=== PATIENT | female | born 1995 | race Caucasian/White ===

== ENCOUNTER 2023-07-18 10:26 | Emergency (ER) | payer BC, OTHER ==
[2023-07-18 10:42] VITALS: BP 143/70; O2SAT 98
[2023-07-18] MEDS ORDERED: ONDANSETRON ODT 4 MG TABLET TL STA (12:24)
--- NOTE | 2023-07-18 12:26 | ED Physician Documentation ---
PD HPI HEAD INJURY - Stated complaint Stated Complaint: DIZZY/NAUSEA/VOMITING - Chief complaint Chief Complaint: Trauma Hd/Nk - History obtained from History obtained from: Patient - Additional information Additional information: Yesterday around 5 PM she was picking up one of her child's toys and bent over and hit her forehead into the edge of the wall. She saw stars but did not blackout. Since then she has had a moderate headache with 1 episode of vomiting yesterday and one episode today. Everything worsened today and the fluorescent lights at work. PD PAST MEDICAL HISTORY - Past Medical History Past Medical History: No - Past Surgical History Past Surgical History: Yes Ortho: Shoulder arthroplasty /[employer]: section - Present Medications Home Medications: Ambulatory Orders Medication Instructions Recorded Confirmed Ondansetron Odt [Zofran] 4 mg TL Q6H PRN #10 tablet 07/18/23 - Allergies Allergies/Adverse Reactions: Allergies Allergy/AdvReac Type Severity Reaction Status Date / Time avocado Allergy Hives Verified 07/18/23 10:39 - Social History Does the pt smoke?: No Smoking Status: Never smoker Does the pt drink ETOH?: Yes Does the pt have substance abuse?: No - Immunizations Immunizations are current?: Yes - POLST Patient has POLST: No PD ED PE NORMAL - Vitals Vital signs reviewed: Yes - General General: Alert and oriented X 3, No acute distress - HEENT HEENT: PERRL, EOMI - Neck Neck: Supple, no meningeal sign, No bony TTP - Neuro Neuro: Alert and oriented X 3, bell maker 2-12 intact Eye Opening: Spontaneous Motor: Obeys Commands Verbal: Oriented GCS Score: 15 - Psych Psych: Normal mood, Normal affect Results - Vitals Vitals: Vital Signs - 24 hr 07/18/23 10:34 Temperature 36.6 C Heart Rate 85 Respiratory 16 Rate Blood Pressure 143/70 H O2 Saturation 98 Oxygen O2 Source Room air PD Medical Decision Making - ED course ED course: 27-year-old woman with concussive symptoms. We discussed cranial imaging but she declined after discussion. I think that is fine as she seems low risk given the time course and normal exam. Departure - Departure Disposition: 01 Home, Self Care Clinical Impression: Concussion Condition: Good Record reviewed to determine appropriate education?: Yes Instructions: ED Concussion Prescriptions: Ondansetron Odt [Zofran] 4 mg TL Q6H PRN #10 tablet PRN Reason: Nausea / Vomiting Comments: Return if you worsen or fail to improve over the next few days. Take it easy the rest of the day and minimize stimulus, lights, sounds.
== END 2023-07-18 12:41 | disposition home or self-care (01) ==
LOC: ED 10:26
DX: S06.0X0A Concussion without loss of consciousness, initial encounter (principal); W22.8XXA Striking against or struck by other objects, initial encounter
CPT/HCPCS: 99282; 99283; Q0162